=== PATIENT | female | born 1935 | race Caucasian/White ===

== ENCOUNTER 2017-01-07 20:29 | Observation (INO) | payer MEDICARE ==
[2017-01-07 21:26] LABS: Hematocrit 40 % (35-47); Hemoglobin 13.1 g/dl (12.0-16.0); Mean Corpuscular HGB Conc 33 g/dl (31-36); Mean Corpuscular Hemoglobin 32 pg (27-31); Mean Corpuscular Volume 97 fL (80-97); Mean Platelet Volume 9 um3 (7.4-10.4); Red Blood Count 4.14 10^6/ul (4.0-5.4); Red Cell Distribution Width 14 % (10.5-15); White Blood Count 7.7 10^3/ul (3.5-10.8)
[2017-01-07 21:42] LABS: Albumin 3.9 g/dL (3.2-5.2); BUN/Creatinine Ratio 21.3 (8-20); EGFR African American 73.3 (>60); Globulin 2.7 g/dL (2-4); Magnesium 2.2 mg/dL (1.9-2.7); Potassium 3.8 mmol/L (3.5-5.0); Total Bilirubin 0.5 mg/dL (0.2-1.0); Total Protein 6.6 g/dL (6.4-8.9)
--- NOTE | 2017-01-07 21:45 | RAD ---
INDICATION: Syncope COMPARISON: None TECHNIQUE: PA and lateral views of the chest were obtained. FINDINGS: The heart and mediastinum are normal in size and contour. The lungs are grossly clear. There is no evidence of large pleural effusion. There are degenerative changes of thoracic spine including loss of intervertebral disc height. Posterior lumbar trans pedicle screws are partially visualized. There is no radiographic evidence of free air beneath the diaphragm IMPRESSION: No radiographic evidence of acute cardiopulmonary disease.
--- NOTE | 2017-01-07 22:25 | ED ---
Marimar Magana Edward, scribed for Manny Aguilar MD on 01/07/17 at 2052 . Syncope/Near Syncope - HPI Summary HPI Summary: 81 y/o female BIBA s/p sudden onset syncopal episode (1x) that lasted a few minutes. There was no fall; the syncope was witnessed by the family. The pt was eating dinner when it happened. Associated sx: nausea. - History Of Current Complaint Time Seen by Provider: 01/07/17 20:50 Hx Obtained From: Family/Manager Operations And Procurement, EMS Onset/Duration: Sudden Onset, Lasting Minutes Timing: Intermittent Episode Lasting - 1x lasting minutes Context: Witnessed, Loss Of Consciousness Activity At Onset: Other - Eating dinner Associated Head Trauma: No Associated Signs And Symptoms: Other - Nausea Frequency: Episodes x___ - 1 - Allergies/Home Medications Allergies/Adverse Reactions: Allergies Allergy/AdvReac Type Severity Reaction Status Date / Time Clindamycin Allergy Rash Verified 01/07/17 21:27 Penicillins Allergy Unknown Verified 01/07/17 21:30 Reaction Details Sulfa Antibiotics Allergy Unknown Verified 01/07/17 21:30 Reaction Details Home Medications: Home Medications Aspirin TAB* [Aspirin 325 MG TAB*] 325 mg PO DAILY 01/08/17 [History Confirmed 01/08/17] Lisinopril TAB* [Prinivil TAB 10 MG*] 10 mg PO DAILY 01/08/17 [History Confirmed 01/08/17] Lovastatin (NF) [Mevacor (NF)] 10 mg PO DAILY 01/08/17 [History Confirmed ] Metoprolol Tartrate TAB* [Lopressor TAB*] 12.5 mg PO BID 01/08/17 [History Confirmed 01/08/17] Multiple Vitamins W/ Minerals [Multivitamin Adults] 1 tab PO DAILY 01/08/17 [ History Confirmed 01/08/17] PMH/Surg Hx/FS Hx/Imm Hx Previously Healthy: No Cardiovascular History: Reports: Hx Atrial Fibrillation, Hx Hypertension - Surgical History Surgery Procedure, Year, and Place: bilateral knee replacements, disc replacement x2 and eric placement Infectious Disease History: Denies: Traveled Outside the [place] in Last 30 Days - Family History Known Family History: Negative: Other - No CVA - Social History Occupation: Retired Lives: Alone Review of Systems Constitutional: Negative Eyes: Negative ENT: Negative Cardiovascular: Negative Respiratory: Negative Positive: Nausea Genitourinary: Negative Musculoskeletal: Negative Skin: Negative Positive: Syncope Psychological: Normal All Other Systems Reviewed And Are Negative: Yes Physical Exam Triage Information Reviewed: Yes Vital Signs Reviewed: Yes Appearance: Positive: Well-Appearing, No Pain Distress Skin: Positive: Warm Head/Face: Positive: Normal Head/Face Inspection Eyes: Positive: NANDO ENT: Positive: Hearing grossly normal Neck: Positive: Supple Respiratory/Lung Sounds: Positive: Clear to Auscultation, Breath Sounds Present Cardiovascular: Positive: RRR Abdomen Description: Positive: Nontender, Soft Bowel Sounds: Positive: Present Musculoskeletal: Positive: Strength/ROM Intact Neurological: Positive: Alert, Oriented to Person Place, Time Psychiatric: Positive: Affect/Mood Appropriate Diagnostics - Laboratory Result Diagrams: 01/07/17 21:00 01/07/17 21:00 Lab Statement: Any lab studies that have been ordered have been reviewed, and results considered in the medical decision making process. - Radiology CXR Xray Interpretation: No Acute Changes - NAD Radiology Interpretation Completed By: Radiologist - CT BRAIN CT CT Interpretation: No Acute Changes - NO ACUTE INTRACRANIAL FINDINGS CT Interpretation Completed By: Radiologist - EKG 1 Cardiac Rate: NL EKG Rhythm: Sinus Rhythm - @ 79 bpm EKG Interpretation: 21:34 - Nonspecific L lead abnormalities Re-Evaluation - Re-Evaluation First Eval Comment: reults d/w pt Course/Dx Assessment/Plan: 81 y/o female BIBA s/p sudden onset syncopal episode that lasted a few minutes. There was no fall; the syncope was witnessed by the family. The pt was eating dinner when it happened. Associated sx: nausea. CXR SHOWS NAD. EKG @ 21:34 shows NSR @ 79 bpm and nonspecific L lead abnormalities. BRAIN CT SHOWS NO ACUTE INTRACRANIAL FINDINGS. Discusssed with Dr. Seth at 23: 20. [place] [facility] - Diagnoses Provider Diagnoses: Syncope Discharge - Discharge Plan Condition: Fair Disposition: ADMITTED TO [facility] documentation as recorded by the Marimar conde Edward accurately reflects the service I personally performed and the decisions made by me, Manny Aguilar MD.
[2017-01-08 01:26] LABS: Urine Bacteria Absent (Absent); Urine Bilirubin Negative (Negative); Urine Glucose Negative (Negative); Urine Nitrite Negative (Negative)
[2017-01-08] MEDS ORDERED: Heparin VIAL(*) 5000 UNITS/ML VIAL (FIVE THOUSAND) SUBCUT SCH (06:00)
[2017-01-08] MEDS ORDERED: NS 0.9% 1000 ML* 1,000 ML IV SCH (06:00)
[2017-01-08 08:00] VITALS: BP 133/57
--- NOTE | 2017-01-08 08:23 | RAD ---
Indication: Syncope. CT of the brain was performed without IV contrast. Ventricular structures are midline. No midline shift is noted. The extra-axial spaces are unremarkable. There is no evidence of intracranial mass or hemorrhage. No other high or low density lesions are identified. Mastoid air cells and paranasal sinuses are otherwise unremarkable. IMPRESSION: There is no evidence of intracranial mass or hemorrhage noted.
--- NOTE | 2017-01-08 08:57 | DCNOTE ---
Patient seen this morning. Says she is feeling much better, sitting up in bed. [place] she overdid it in the past days, flying from [place], has not been eating or drinking much and has been helping her son clean the house. Received IVF and lactic resolved. On exam, RRR, s1 and s2 present, no m/g/r, lungs CTA B/L, no w/r/r, abd soft, NTND, BS+ No events on tele. Will check orthostatics. Plan to discharge home today with follow-up with her PCP in [place].
[2017-01-08] MEDS ORDERED: Aspirin TAB* 325 MG PO SCH (09:00)
[2017-01-08] MEDS ORDERED: Metoprolol Tartrate TAB* 25 MG PO SCH (09:00)
[2017-01-08] MEDS ORDERED: Multivitamins/Minerals TAB PO SCH (09:00)
[2017-01-08] MEDS ORDERED: LOVASTATIN 10 MG PO SCH (09:00)
[2017-01-08] MEDS ORDERED: Lisinopril TAB* 10 MG PO SCH (09:00)
--- NOTE | 2017-01-08 13:11 | HP ---
HISTORY AND PHYSICAL: DATE OF ADMISSION: 01/08/17 CHIEF COMPLAINT: "I passed out." HISTORY OF PRESENT ILLNESS: The patient is an 81-year-old woman who states she went to her granddaughter's home today for a celebration. She lives in [place], [place], and was visiting. She said all she had was a little glass of wine. She then started to eat and felt faint. The next thing she knows, she was on the floor on a pad. People there said she was out for a few minutes. They did not notice any jerking or any seizure-like activity. She had no tongue biting and no urinary or bowel incontinence. She was completely aware when she awoke. She said last February, a similar thing happened when she passed out on the floor after going to the bathroom. She went to the hospital and was found to be dehydrated. She said prior to this, she had no chest pain, shortness of breath, or palpitations. She does think she has not had enough fluids. PAST MEDICAL HISTORY: She has a past medical history significant for hypertension, hyperlipidemia, and atrial fibrillation. MEDICATIONS: 1. Lisinopril 10 mg daily. 2. Lovastatin 10 mg daily. 3. Metoprolol 12.5 mg twice a day. 4. Aspirin 81 mg daily. 5. She takes a multivitamin and calcium. ALLERGIES/ADVERSE REACTION: CLINDAMYCIN, PENICILLIN and SULFA ANTIBIOTICS. FAMILY HISTORY: Reviewed and noncontributory. SOCIAL HISTORY: No tobacco, occasional alcohol. No recreational drug use. 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 She is a . She has 4 sons and a daughter. Daughter is her healthcare proxy. REVIEW OF SYSTEMS: A 14-point review of systems was completed with the patient. All pertinent positives and negatives are in the history of present illness, otherwise is negative. PHYSICAL EXAMINATION GENERAL: A pleasant woman, lying in bed, in no acute distress. VITAL SIGNS: Temperature 98 degrees, heart rate 78 beats per minute, respiratory rate 16 breaths per minute, pulse ox 98% on room air, blood pressure 151/72. HEENT: Normocephalic, atraumatic. Pupils are equal, round, and reactive to light. Moist mucous membranes. NECK: Supple. No JVD, bruits, palpable thyroid, or lymphadenopathy. CHEST: Clear to auscultation and percussion bilaterally. CARDIOVASCULAR: S1 and S2 appreciated. Regular rate and rhythm. ABDOMEN: Positive bowel sounds in all 4 quadrants. Soft, nontender, and nondistended. EXTREMITIES: No cyanosis, clubbing or edema, +2 peripheral pulses bilaterally. NEURO: Alert and oriented x3. Moves all extremities. SKIN: No rashes or abnormalities. LABORATORY DATA/DIAGNOSTIC DATA: White count 7.7, hemoglobin 13.1, hematocrit 40, platelets are 207. Sodium 136, potassium 3.8, chloride 102, CO2 25, BUN 20 , creatinine 0.94, glucose is 110. Lactic acid is 3. Urine has +2 leukocyte esterase, +2 rbc's, trace white cells. D-dimer is less than 200. Brain CT was reviewed. Showed no acute abnormalities by the preliminary findings. Chest x-ray showed no radiographic evidence for acute cardiopulmonary disease. EKG showed normal sinus rhythm at 67 beats per minute, normal axis, no evidence of ST-T wave changes. ASSESSMENT AND PLAN: 1. Syncope may be secondary to dehydration. She could have had an arrhythmia, which had gone through rapid atrial fibrillation. She is back in normal sinus. We will admit her to telemetry unit, do neurological checks, check serial troponins. We would normally get an echo on this patient, but we do not do them until tomorrow and she probably could just have one as an outpatient. She may also have urinary tract infection. I will give her a dose of Rocephin. 2. Hypertension. Borderline control. Continue current regimen and adjust medications accordingly. 3. Atrial fibrillation. Continue metoprolol and aspirin. 4. Hyperlipidemia. Stable. Continue statin. 5. DVT prophylaxis. Heparin subcu. 6. The patient is a full code. TIME SPENT: Over 75 minutes was spent on this H and P; more than 40 minutes of which was spent in direct [id number] contact with the patient in evaluation, physical exam, counseling, and coordination of care. [id number]/[facility] #: [id number] [facility]
--- NOTE | 2017-01-09 03:37 | DS ---
DISCHARGE SUMMARY: DATE OF ADMISSION: 01/08/17 DATE OF DISCHARGE: 01/08/17 PRIMARY CARE PHYSICIAN: In [place]. PRINCIPAL DISCHARGE DIAGNOSIS: Syncope. SECONDARY DIAGNOSES: 1. Hypertension. 2. Hyperlipidemia. 3. Atrial fibrillation. DISCHARGE MEDICATION REGIMEN: 1. Metoprolol 12.5 mg by mouth 2 times daily. 2. Multivitamin 1 tablet by mouth daily. 3. Aspirin 81 mg by mouth daily. 4. Lovastatin 10 mg by mouth at bedtime. 5. Calcium plus vitamin D 1 tablet by mouth daily. 6. Vitamin B12 1000 mcg by mouth daily. 7. Lisinopril 10 mg by mouth daily. STUDIES DONE DURING HOSPITALIZATION: Chest x-ray, impression: No radiographic evidence of acute ca rdiopulmonary disease. CT of the brain without contrast, impression: There is no evidence of intracranial mass or hemorrha ge noted. HISTORY OF PRESENT ILLNESS AND HOSPITAL SUMMARY: Please see the full history and physical by Dr. Db Seth for full details. Briefly, Ms. Guillory is an 81-year- old female with a past medical hi story as above, who presented to the hospital after a syncopal episode. 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 It seemed that this culminated at a dinn er yesterday and just prior to eating while sitting down, she had a syncopal episode. She came to s hortly afterwards and was not confused. She had no shaking, bladder or bowel incontinence, or bitin g of the tongue. Here in the hospital, labs were relatively unremarkable except for a lactic acid o f 3.0. Troponins were trended and remained negative. She was placed on telemetry with no acute shayan nts. She was given some IV fluids with resolution of her lactic acidosis. She had no further episod es here in the hospital, so likely this was probably due to dehydration and overexerting herself. S he states she usually is able to tell when she has an episode of atrial fibrillation, it has been ye ars since her last one. She will be discharged home without any medication changes and follow up wit h her PCP back in [place]. TIME SPENT: Total time spent on this discharge 40 minutes. This is a summary of the hospitalization. Please see the full medical record for further details. [id number]/[facility] #: [id number]
== END 2017-01-08 11:02 | disposition home or self-care (01) ==
LOC: ED 20:29 → MERGE 01-08 01:13 → MEDTELE 01-08 01:13
PROVIDERS: ADMIT Internal Medicine; ATTEND Hospitalist
DX: R55 Syncope and collapse (principal); I10 Essential (primary) hypertension; E78.5 Hyperlipidemia, unspecified; I48.91 Unspecified atrial fibrillation; Z79.82 Long term (current) use of aspirin; Z79.899 Other long term (current) drug therapy; Z88.0 Allergy status to penicillin; Z88.1 Allergy status to other antibiotic agents
CPT/HCPCS: 36415; 70450; 71020; 80053; 81003; 81015; 83605; 83735; 84484; 85025; 85379; 87077; 87086; 87186; 93005; 96360; 96361; 96372; 99284; A9270-GY; G0378; J1644

== ENCOUNTER 2017-01-11 12:08 | Inpatient (IN) | payer MEDICARE ==
[2017-01-11 12:41] LABS: Hematocrit 41 % (35-47); Hemoglobin 13.4 g/dl (12.0-16.0); Mean Corpuscular HGB Conc 33 g/dl (31-36); Mean Corpuscular Hemoglobin 31 pg (27-31); Mean Corpuscular Volume 95 fL (80-97); Mean Platelet Volume 9 um3 (7.4-10.4); Red Blood Count 4.29 10^6/ul (4.0-5.4); Red Cell Distribution Width 14 % (10.5-15); White Blood Count 6.9 10^3/ul (3.5-10.8)
[2017-01-11 13:00] LABS: ALT 17 U/L (7-52); Albumin 4.1 g/dL (3.2-5.2); Alkaline Phosphatase 42 U/L (34-104); Blood Urea Nitrogen 18 mg/dL (6-24); CO2 Carbon Dioxide 26 mmol/L (22-32); Chloride 102 mmol/L (101-111); EGFR African American 85.8 (>60); EGFR Non-African American 66.7 (>60); Globulin 2.8 g/dL (2-4); Glucose 112 mg/dL (70-100); Magnesium 2.2 mg/dL (1.9-2.7); Sodium 135 mmol/L (133-145); Total Protein 6.9 g/dL (6.4-8.9)
[2017-01-11 13:08] LABS: AST 33 U/L (13-39); Anion Gap 7 mmol/L (2-11)
--- NOTE | 2017-01-11 13:11 | RAD ---
HISTORY: Syncope COMPARISONS: June 17, 2009 VIEWS: 4: Frontal dual-energy and lateral views of the chest. FINDINGS: CARDIOMEDIASTINAL SILHOUETTE: The cardiomediastinal silhouette is normal. OBI: The obi are normal. PLEURA: The costophrenic angles are sharp. No pleural abnormalities are noted. LUNG PARENCHYMA: There is hyperinflation with flattening of the diaphragm and expansion of the AP diameter of the chest. ABDOMEN: The upper abdomen is clear. There is no subphrenic gas. BONES AND SOFT TISSUES: The patient is status post spinal fusion OTHER: None. IMPRESSION: HYPERINFLATION, CONSISTENT WITH COPD. NO ACTIVE CARDIOPULMONARY DISEASE.
[2017-01-11 13:13] LABS: Alcohol < 10 mg/dL (<10)
[2017-01-11 13:24] LABS: TSH (Thyroid Stimulating Horm) 4.32 mcIU/mL (0.34-5.60)
[2017-01-11 14:34] LABS: Urine Bacteria Absent (Absent); Urine Bilirubin Negative (Negative); Urine Glucose Negative (Negative); Urine Nitrite Negative (Negative)
[2017-01-11] MEDS ORDERED: Acetaminophen TAB* 325 MG PO PRN (14:54)
[2017-01-11] MEDS ORDERED: Ondansetron INJ* 2 MG/ML VIAL IV PRN (14:54)
[2017-01-11 14:55] LABS: Benzodiazepine Urine Screen None Detected (None Detect)
[2017-01-11] MEDS ORDERED: Iohexol 350* (CONTRAST) 500 ML MDV IV ONE (16:52)
--- NOTE | 2017-01-11 17:51 | HP ---
ADDENDUM NOW INCLUDED ON THIS REPORT CC: Dr. Vania Scott from [place], [place] * HISTORY AND PHYSICAL: DATE OF ADMISSION: 01/11/17 PRIMARY CARE PROVIDER: Dr. Vania Scott from [place], [place]. ATTENDING PHYSICIAN WHILE IN THE HOSPITAL: Poly Denney DO * (report dictated by Regan Easton NP). CHIEF COMPLAINT: Syncope. HISTORY OF PRESENT ILLNESS: Ms. Guillory is an 81-year-old female patient who has a history of hypertension, hyperlipidemia, atrial fibrillation, who is visiting from [place], [place], and unfortunately she has had 2 episodes 2 days apart where she has been sitting both times, she gets flushed and then faints. She states that typically she is out for about 2 minutes and then she comes to. She says when she comes to, she recognizes her surrounding, she knows where she is. She was evaluated on 01/08/17, was admitted and it was felt that she was fainting possibly or having syncope due to dehydration and orthostasis. She responded to fluids, was feeling better and discharged. Unfortunately today , she was sitting at a meeting, she got flushed. She did not have chest pain. She did not feel palpitations. She said she passed out at the desk where she was sitting and no cardiac symptoms prior to or after the event and no shortness of breath. She did travel via airline to [place] recently. Denies any change in medications recently. Denies having any fevers, cough, chills. No vomiting. No diarrhea. She said she has been taking her meds as prescribed. She does state that sometimes her heart rate is noted to be in the 50s. Sometimes it is as low as in the 40s. She is on a beta-david. She did have a similar episode in February of this year, was evaluated in [place], and had a 30-day event monitor and no events were found, according to the patient's recall. She came in today, though, and because of the syncope, we were asked to evaluate for admission. PAST MEDICAL HISTORY: Significant for: 1. Hypertension. 2. Hyperlipidemia. 3. AFib. PAST SURGICAL HISTORY: She has had: 1. Tonsillectomy. 2. Appendectomy. 3. Bilateral total knee replacement. 4. Back surgery x2. HOME MEDICATIONS: Home meds are according to the list that was obtained and include: 1. Multivitamin 1 tablet daily. 2. Lopressor 12.5 mg p.o. b.i.d. 3. Mevacor 10 mg at bedtime. 4. Lisinopril 10 mg daily. 5. B12 1000 mcg daily. 6. Calcium with vitamin D 1 tablet p.o. daily. 7. Aspirin 81 mg daily. ALLERGIES TO MEDICATIONS: CLINDAMYCIN, PENICILLIN and SULFA DRUGS. FAMILY HISTORY: Mother at the age of 96 from old age. Father had a history of dementia. SOCIAL HISTORY: She does not smoke. She rarely drinks alcohol. Surrogate decision maker is her daughter. REVIEW OF SYSTEMS: There is no documented fever. She denied having any significant weight change. There was no double vision. She denies having any ear discharge. There was no rhinorrhea. No sore throat. No thyroid enlargement. She denies having any chest pain. No orthopnea, nocturnal dyspnea. There was no abdominal pain, no nausea, no vomiting. No dysuria, no frequency. No seizure. There was a loss of consciousness. No pruritus and no skin ulcerations. Review of 14 systems completed, all others negative. PHYSICAL EXAMINATION GENERAL: At this time, Ms. Guillory is an 81-year-old female patient. She appears to be well nourished, well developed. She does not appear to be in any acute distress. VITAL SIGNS: Blood pressure 140/65 with a pulse of 86, respirations 16, O2 sat 97%, temperature 98.4. HEENT: Head is atraumatic, normocephalic. Eyes: EOMs are intact. Sclerae anicteric, not pale. NECK: Supple. Throat: Oral mucosa appears to be moist. No oropharyngeal erythema. LUNGS: Clear to auscultation. No wheezes, rales or rhonchi. HEART: Sounds S1 and S2. Regular rate and rhythm. No murmurs, rubs or gallops. ABDOMEN: Soft, flat, nontender. Bowel sounds present. EXTREMITIES: Pulses were 2+ throughout. She is able to move all 4 extremities with 5/5 strength. NEUROLOGIC: The patient is awake, alert, oriented x3. Tongue midline. Criminal Justice Social Worker were equal. No gross focal deficits. SKIN: Grossly intact. LABORATORY DATA/IMAGING: Revealed a WBC of 6.9, RBC of 4.29, hemoglobin of 13.4, hematocrit of 41, platelet count 209. Sodium is 135, potassium 4, chloride of 102, bicarb 26, BUN 18, creatinine 0.82, glucose 112, lactate 1.1, calcium 9.0. Total mag 2.2. Total bili 0.5, AST 33, ALT 17, alk phos 42, ammonia 26, troponin 0. TSH of 4.32. Serum alcohol is less than 10. She did have a chest x-ray obtained today which revealed hyperinflation consistent with COPD, no active cardiopulmonary disease. She did have an EKG obtained today which revealed sinus bradycardia rate of 59, no ST elevation or T-wave inversions. Reviewed with her previous EKG and is similar. Old medical records are reviewed. ASSESSMENT AND PLAN: Ms. Guillory is an 81-year-old female patient coming into the ER today with complaints of a syncopal episode. The patient has had instances of this in the past. She did have an episode in February. She has another episode recently this week and now presenting again having syncope while sitting in the chair. She will be admitted under observation status for: 1. Syncope. At this point, you know she may benefit from a loop recorder. Unfortunately though, she does reside in [place]. I did touch base with her cyber defense incident responder who felt that placing a loop recorder without being able to ensure followup was not the best approach. He felt that it would be better to have the patient follow up with her primary cyber defense incident responder in [place] for a possible loop recorder. I am trying to get the contact information to see if we can touch base with him. If we do not do it today, we can do it tomorrow. My plan for now is: 1. To do an echo, D-dimer, troponins, telemetry, and follow closely and check orthostatics. 2. Hypertension. I am going to stop the beta-david as her heart rate has dipped down into the 40s and 50s. We will continue lisinopril, and if need be, we can add on a calcium channel david such as Norvasc if she needs better blood pressure control. 3. Hyperlipidemia. Continue Mevacor. 4. Atrial fibrillation. She appears to be in sinus rhythm, now on monitor. 5. DVT prophylaxis. Place her on heparin subcu. 6. Code status. Full code. 7. Fluids, electrolytes, nutrition. She can have a heart healthy diet. TIME SPENT: Time spent on the admission was 60 minutes, greater than half the time was spent face to face with the patient obtaining my history and physical, the other half of the time was spent on going over the plan of care with the patient and implementing the place of care. I did discuss the plan of care with my attending, Dr. Denney; she is in agreement. REGAN EASTON NP ADDENDUM: It did touch base with the patient's cyber defense incident responder Dr. Jose Alfredo Rutledge at [place], phone number [phone], fax number [phone]. Unfortunately, Dr. Rutledge will not be in for the next couple of weeks, but I did relay a message to the nurse there that the patient most likely will benefit from a Linq monitor , which they do offer there. Our cyber defense incident responder here felt that it would be more beneficial to have the patient have this device placed in [place]. So I did touch base with her, relayed that message, and I am waiting to hear back from the patient's cyber defense incident responder's office and from the nurse that deals with the monitoring. Again, if they do not call back today, we can touch base with them tomorrow. REGAN EASTON NP [id number]/[facility] #: [id number]/[facility] #: [id number] [facility]
--- NOTE | 2017-01-11 17:55 | ED ---
Marimar Magana Edward, scribed for Alex Weber MD on 01/11/17 at 1224 . Syncope/Near Syncope - HPI Summary HPI Summary: 81 y/o female presents to ED s/p sudden onset syncopal episode earlier today. Witnessed LOC for around 2 minutes. The patient was sitting when it happened, and felt warm. She looked pale, per witness. Denies CARLOS, blurred vision, CP, SOB , palpitations, N/V. PMHx syncopal episodes. Five days ago during dinner the pt had a syncopal episode and was admitted to the ED. - History Of Current Complaint Chief Complaint: EDSyncope Time Seen by Provider: 01/11/17 12:18 Hx Obtained From: Patient Onset/Duration: Sudden Onset, Lasting Weeks - Last episode 5 days ago. Also once in Feb. Timing: Frequency Of Episodes - 2 Context: Witnessed, Loss Of Consciousness Activity At Onset: At Rest - Sitting Associated Signs And Symptoms: Negative Frequency: Episodes x___ - Allergies/Home Medications Allergies/Adverse Reactions: Allergies Allergy/AdvReac Type Severity Reaction Status Date / Time Clindamycin Allergy Rash Verified 01/07/17 21:27 Penicillins Allergy Unknown Verified 01/07/17 21:30 Reaction Details Sulfa Antibiotics Allergy Unknown Verified 01/07/17 21:30 Reaction Details SCALLOPS Allergy Unknown Uncoded 01/08/17 10:54 Reaction Details SQUID AdvReac Unknown Uncoded 01/08/17 10:54 Reaction Details Home Medications: Home Medications Aspirin EC Low Dose* [Ecotrin EC Low Dose 81 MG*] 81 mg PO DAILY 01/11/17 [ History Confirmed 01/11/17] PMH/Surg Hx/FS Hx/Imm Hx Previously Healthy: No Cardiovascular History: Reports: Hx Atrial Fibrillation, Hx Hypertension Musculoskeletal History: Reports: Hx Back Problems Sensory History: Denies: Hx Contacts or Glasses, Hx Hearing Aid Opthamlomology History: Denies: Hx Contacts or Glasses - Surgical History Surgery Procedure, Year, and Place: bilateral knee replacements, disc replacement x2 and eric placement Infectious Disease History: No Infectious Disease History: Denies: Traveled Outside the [place] in Last 30 Days - Family History Known Family History: Negative: Other - No CVA - Social History Alcohol Use: Occasionally Alcohol Amount: glass of wine Substance Use Type: Reports: None Smoking Status (MU): Never Smoked Tobacco Review of Systems Constitutional: Negative Eyes: Negative ENT: Negative Cardiovascular: Negative Respiratory: Negative Gastrointestinal: Negative Genitourinary: Negative Musculoskeletal: Negative Skin: Negative Positive: Syncope Psychological: Normal All Other Systems Reviewed And Are Negative: Yes Physical Exam - Summary Physical Exam Summary: VITAL SIGNS: Reviewed. GENERAL: ~Patient is a well-developed and nourished female who is lying comfortable in the stretcher. ~Patient is not in any acute respiratory distress. HEAD AND FACE: No signs of trauma. ~No ecchymosis, hematomas or skull depressions. No sinus tenderness. EYES: PERRLA, EOMI x 2, No injected conjunctiva, no nystagmus. EARS: Hearing grossly intact. Ear canals and tympanic membranes are within normal limits. MOUTH: Oropharynx within normal limits. NECK: Supple, trachea is midline, no adenopathy, no JVD, no carotid bruit, no c- spine tenderness, neck with full ROM. CHEST: Symmetric, no tenderness at palpation LUNGS: Clear to auscultation bilaterally. No wheezing or crackles. CVS: Regular rate and rhythm, S1 and S2 present, no murmurs or gallops appreciated. ABDOMEN: Soft, non-tender. No signs of distention. No rebound no guarding, and no masses palpated. Bowel sounds are normal. EXTREMITIES: FROM in all major joints, no edema, no cyanosis or clubbing. NEURO: Alert and oriented x 3. No acute neurological deficits. Speech is normal and follows commands. SKIN: Dry and warm Triage Information Reviewed: Yes Vital Signs On Initial Exam: Initial Vitals Temp Pulse Resp BP Pulse Ox 98.4 F 77 20 167/103 94 01/11/17 12:09 01/11/17 12:09 01/11/17 12:09 01/11/17 12:09 01/11/17 12:09 Vital Signs Reviewed: Yes - [place] Coma Scale Coma Scale Total: 15 Diagnostics - Vital Signs Vital Signs Temp Pulse Resp BP Pulse Ox 01/11/17 12:17 70 01/11/17 12:15 27 01/11/17 12:13 167/103 01/11/17 12:09 98.4 F 77 20 167/103 94 - Laboratory Result Diagrams: 01/11/17 12:30 01/11/17 12:30 Lab Statement: Any lab studies that have been ordered have been reviewed, and results considered in the medical decision making process. - Radiology CXR Xray Interpretation: No Acute Changes - HYPERINFLATION, CONSISTENT WITH COPD. NO ACTIVE CARDIOPULMONARY DISEASE. Radiology Interpretation Completed By: Radiologist - EKG 1 ST Segment: Normal EKG Interpretation: 12:15 - SINUS BRADYCARDIA @ 59 BPM EKG Comparison: No Significant Change - 01/08/17 Course/Dx Assessment/Plan: 81 y/o female presents to ED s/p sudden onset syncopal episode earlier today. The patient was sitting when it happened, and felt warm prior to the episode. She looked pale, per witness. Denies CARLOS, blurred vision, CP, SOB, palpitations, N/V. PMHx syncopal episode. Five days ago during dinner the pt had a syncopal episode and was admitted to the ED. CXR SHOWS HYPERINFLATION, CONSISTENT WITH COPD. NO ACTIVE CARDIOPULMONARY DISEASE. EKG 12:15 - SINUS BRADYCARDIA @ 59 BPM and no significant change from 01/08/17. Test results are without significant abnormalities except glucose 112. UA (-) UTI. Urine toxicology negative. I did not perform HEAD CT since he had a negative head CT 2 days ago. CXR and EKG. Because of continual syncopal episodes, I discussed the case with Dr. Denney who accepted the pt for admission. The pt is hemodynamically stable and A&Ox3. - Diagnoses Provider Diagnoses: Syncope Discharge - Discharge Plan Condition: Stable Disposition: ADMITTED TO [facility] The documentation as recorded by the Marimar conde Edward accurately reflects the service I personally performed and the decisions made by me, Alex Weber MD.
--- NOTE | 2017-01-11 18:08 | HP ---
HISTORY AND PHYSICAL:* ADDENDUM: It did touch base with the patient's systems program manager Dr. Jose Alfredo Rutledge at [place], phone number [phone], fax number [phone]. Unfortunately, Dr. Rutledge will not be in for the next couple of weeks, but I did relay a message to the nurse there that the patient most likely will benefit from a Linq monitor, which they do offer there. Our systems program manager here felt that it would be more beneficial to have the patient have this device placed in [place]. So I did touch base with her, relayed that message and I am waiting to hear back from the patient's systems program manager's office and from the nurse that deals with the monitoring. Again, if they do not call back today, we can touch base with them tomorrow. THONY WARE NP [id number]/[id number]/[facility] #: [id number] SARA
[2017-01-11] MEDS ORDERED: predniSONE TAB* 50 MG PO ONE (19:00)
[2017-01-11] MEDS ORDERED: Lovastatin (NF) 10 MG TAB PO SCH (21:00)
[2017-01-11] MEDS: Heparin VIAL(*) 5000 UNITS/ML VIAL (FIVE THOUSAND) SUBCUT SCH (21:53)
[2017-01-12] MEDS ORDERED: predniSONE TAB* 50 MG PO ONE ×2 (01:00→07:00)
[2017-01-12 05:18] LABS: Hematocrit 42 % (35-47); Hemoglobin 13.9 g/dl (12.0-16.0); Mean Corpuscular HGB Conc 34 g/dl (31-36); Mean Corpuscular Hemoglobin 31 pg (27-31); Mean Corpuscular Volume 94 fL (80-97); Mean Platelet Volume 9 um3 (7.4-10.4); Red Blood Count 4.43 10^6/ul (4.0-5.4); Red Cell Distribution Width 14 % (10.5-15); White Blood Count 5.2 10^3/ul (3.5-10.8)
[2017-01-12 05:33] LABS: BUN/Creatinine Ratio 27.1 (8-20); Calcium 9.4 mg/dL (8.6-10.3); EGFR Non-African American 80.1 (>60); Potassium 3.7 mmol/L (3.5-5.0)
[2017-01-12] MEDS: Heparin VIAL(*) 5000 UNITS/ML VIAL (FIVE THOUSAND) SUBCUT SCH ×3 (06:26→21:02)
[2017-01-12] MEDS ORDERED: diPHENhydraMINE PO* 50 MG PO ONE (07:00)
[2017-01-12] MEDS: Aspirin EC Low Dose* 81 MG TAB.EC PO SCH (08:32)
[2017-01-12] MEDS: Lisinopril TAB* 10 MG PO SCH (08:32)
--- NOTE | 2017-01-12 08:53 | RAD ---
HISTORY: Shortness of breath, elevated dimer COMPARISONS: None TECHNIQUE: Multiple contiguous axial CT scans of the chest were obtained after the administration of nonionic intravenous contrast, timed to the pulmonary arterial phase of contrast enhancement.. Coronal and sagittal multiplanar reformations are also submitted for review. FINDINGS: NECK AND THYROID: The lower neck and thyroid are unremarkable. CHEST WALL: There is no lower cervical, axillary, or supraclavicular lymphadenopathy by size criteria. HEART AND PERICARDIUM: The heart is unremarkable. AORTA AND PULMONARY VASCULATURE: There is no pulmonary arterial filling defect to suggest pulmonary embolism. There is no linear filling defect within the aorta to suggest aortic dissection. MEDIASTINUM: There is no mediastinal lymphadenopathy by size criteria. OBI: There is no hilar lymphadenopathy by size criteria. AIRWAY AND ESOPHAGUS: The airway is unremarkable, without endobronchial filling defect. The esophagus is grossly normal. LUNG PARENCHYMA: The lungs are clear. PLEURA: No pleural abnormalities are noted. UPPER ABDOMEN: The upper abdomen is unremarkable. BONES AND SOFT TISSUES: Degenerative changes are noted OTHER: None. IMPRESSION: NO PULMONARY ARTERIAL FILLING DEFECT TO SUGGEST PULMONARY EMBOLISM
[2017-01-12] MEDS ORDERED: Metoprolol Tartrate TAB* 25 MG PO SCH (09:00)
[2017-01-12] MEDS: Metoprolol Tartrate TAB* 25 MG PO SCH ×2 (12:42→21:00)
--- NOTE | 2017-01-12 13:09 | ECHO ---
Patient: PEYMAN LONGORIA [facility] Rec#: [id number] : 1935 Date: 01/12/2017 Age: 81y Height: 165.1 cm / 65.0 in Weight: 55.34 kg / 122.0 lbs Sex: F BSA: 1.6 Room#: 439 Admit Date#: 01/11/2017 Type: Inpatient Referring: Regan Easton NP Reading: Hali Issa MD Sketcher: Kathleen Eaton [facility] Transthoracic Echocardiogram Indication: Syncope BP: 140/64 HR: 90 Rhythm: NSR Findings History: HTN,HLD,a-fib,recent syncopal episodes. Technical Comments: The study quality is good. Left Ventricle: The left ventricular chamber size is normal. The left ventricle appears hyperdynamic. The estimated ejection fraction is greater than 65%. No evidence of LVOT obstruction. Abnormal left ventricular diastolic function is observed. Left Atrium: The left atrium is slightly dilated. Right Ventricle: The right ventricular cavity size is normal. The right ventricular global systolic function is normal.to hyperdynamic. Right Atrium: The right atrial cavity size is normal. Aortic Valve: The aortic valve is trileaflet. There is no evidence of aortic regurgitation. There is no evidence of aortic stenosis. Mitral Valve: The mitral valve leaflets appear normal. There is a trace of mitral regurgitation. There is no evidence of mitral stenosis. Tricuspid Valve: The tricuspid valve leaflets are normal. There is trace to mild tricuspid regurgitation. No pulmonary hypertension is noted. There is no tricuspid stenosis. Pulmonic Valve: The pulmonic valve appears normal. There is no evidence of pulmonic regurgitation. There is no pulmonic stenosis. Pericardium: The pericardium appears normal. Aorta: There is no dilatation of the ascending aorta. There is no dilatation of the aortic arch. There is no dilation of the aortic root. Pulmonary Artery: The main pulmonary artery appears normal. Venous: The venous system is not well visualized. Conclusions The left ventricle appears hyperdynamic, small cavity diameter at end systole. The estimated ejection fraction is greater than 65%. No evidence of LVOT obstruction. Abnormal left ventricular diastolic function is observed. The right ventricular global systolic function is normal.to hyperdynamic. There is a trace of mitral regurgitation. There is trace to mild tricuspid regurgitation. No pulmonary hypertension is noted. No prior studies avaiable to compare. Measurements Name Value Normal Range RVIDd (AP) 2D 2.4 cm (0.9 - 2.6) RVDdMajor (2D) 3 cm (2.2 - 4.4) RAd ISD 4CH 4.3 cm (3.4 - 4.9) RA (A4C)W 3 cm (2.9 - 4.6) IVSd (2D) 0.7 cm (0.6 - 1) LVPWd (2D) 0.8 cm (0.6 - 1) LVIDd (2D) 4.6 cm (3.6 - 5.4) LVIDs (2D) 2.7 cm - LV FS (2D) 41 % (25 - 45) Aortic Annulus 2 cm (1.4 - 2.6) Ao root diameter (2D) 3.2 cm (2.1 - 3.5) Ascending Ao 2.8 cm (2.1 - 3.4) Aortic arch 2.4 cm (1.8 - 3.4) Descending Ao 0.7 cm - LA dimension (AP) 2D 3.9 cm (2.3 - 3.8) LAd ISD 4CH 3.6 cm (2.9 - 5.3) LA ISD 4CH W 4 cm (2.5 - 4.5) Name Value Normal Range LA ESV SP 4CH (A/L) 34 ml - LA ESV SP 2CH (A/L) 35 ml - LA ESV BP (A/L) 37 ml - LA ESV BP (A/L) index 23.21 ml/m2 - LA ESV SP 4CH (MOD) 33 ml - LA ESV SP 2CH (MOD) 32 ml - Name Value Normal Range MV E-wave Vmax 0.6 m/sec - MV deceleration time 139 msec - MV A-wave Vmax 0.8 m/sec - MV E:A ratio 0.69 ratio - LV septal e' Vmax 0.06 m/sec - LV lateral e' Vmax 0.07 m/sec - LV E:e' septal ratio 10 ratio - LV E:e' lateral ratio 11.67 ratio - Name Value Normal Range AV Vmax 1.1 m/sec - AV VTI 21 cm - AV peak gradient 4.39 mmHg - AV mean gradient 2.45 mmHg - LVOT Vmax 0.8 m/sec - LVOT VTI 16 cm - LVOT peak gradient 2.67 mmHg - LVOT mean gradient 1.47 mmHg - Name Value Normal Range TR Vmax 2.5 m/sec - TR peak gradient 24 mmHg - RAP 8 mmHg - RVSP 32 mmHg - Name Value Normal Range PV Vmax 0.4 m/sec - PV peak gradient 0.55 mmHg -
--- NOTE | 2017-01-12 16:03 | PN ---
Subjective Date of Service: 01/12/17 Interval History: Pt feels well, had another syncope yesterday prior to coming in to [facility]. no prodromal symptoms apart for a sensation of feeling "hot". Had an episode of a. fib/SVT this AM-several min, HR in 120's, asymptomatic Objective Active Medications: Acetaminophen (Tylenol Tab*) 650 mg PO Q4H PRN PRN Reason: FEVER/PAIN Aspirin (Aspirin Ec Low Dose*) 81 mg PO DAILY [facility] Last Admin: 01/12/17 08:32 Dose: 81 mg Heparin Sodium (Porcine) (Heparin Vial(*)) 5,000 units SUBCUT Q8HR [facility] Last Admin: 01/12/17 14:32 Dose: 5,000 units Sodium Chloride (Ns 0.9% 1000 Ml*) 1,000 mls @ 100 mls/hr IV PER RATE [facility] Lisinopril (Prinivil Tab*) 10 mg PO DAILY [facility] Last Admin: 01/12/17 08:32 Dose: 10 mg Lovastatin (Mevacor (Nf)) 10 mg PO BEDTIME [facility] PRN Reason: Protocol Metoprolol Tartrate (Lopressor Tab*) 12.5 mg PO BID [facility] Last Admin: 01/12/17 12:42 Dose: 12.5 mg Ondansetron HCl (Zofran Inj*) 4 mg IV Q6H PRN PRN Reason: NAUSEA Vital Signs 01/11/17 01/11/17 01/12/17 20:08 22:14 00:11 Temperature 98.1 F 98.2 F Pulse Rate 76 87 75 Respiratory 16 16 Rate Blood Pressure 141/67 135/73 137/67 (mmHg) O2 Sat by Pulse 95 91 Oximetry 01/12/17 01/12/17 01/12/17 01:30 04:29 06:25 Temperature 98.1 F Pulse Rate 92 Respiratory 16 16 Rate Blood Pressure 150/86 (mmHg) O2 Sat by Pulse 95 97 Oximetry 01/12/17 01/12/17 01/12/17 07:55 08:00 08:25 Temperature 98.3 F Pulse Rate 92 Respiratory 16 16 16 Rate Blood Pressure 167/75 (mmHg) O2 Sat by Pulse 96 Oximetry 01/12/17 11:38 Temperature 98.6 F Pulse Rate 104 Respiratory 16 Rate Blood Pressure 156/69 (mmHg) O2 Sat by Pulse 93 Oximetry Oxygen Devices in Use Now: None Appearance: 81 yo f in nAd, aAOx3 Eyes: No Scleral Icterus, PERRLA Ears/Nose/Mouth/Throat: NL Teeth, Lips, Gums, Mucous Membranes Moist Neck: NL Appearance and Movements; NL JVP, Trachea Midline Respiratory: Symmetrical Chest Expansion and Respiratory Effort, Clear to Auscultation Cardiovascular: NL Sounds; No Murmurs; No JVD, RRR Abdominal: NL Sounds; No Tenderness; No Distention Lymphatic: No Cervical Adenopathy Extremities: No Edema, No Clubbing, Cyanosis Skin: No Rash or Ulcers, No Nodules or Sclerosis Neurological: Alert and Oriented x 3, NL Muscle Strength and Tone Result Diagrams: 01/12/17 05:11 01/12/17 05:11 Assess/Plan/Problems-Billing Assessment: 81 yo f with h/o cardiac arrest post op in , HTN, post po a. fib in the past, who presented with a second episode of syncope and LOC this week(previously see on 01/08/17). - Patient Problems (1) Syncope Comment: first episode in 01/08/17 -OBV at [facility] second episode on 01/12/17 Echo shows hyperdynamic LV with EF 65%. CTA neg for PE Spoke with pt about a loop recorder placement. Pt agreed. consulted Dr. Issa cont IVF for now. (2) Atrial fibrillation Comment: noted post op several years ago. Never anticoagulated. lopressor was stopped at admission due to mild bradycardia this AM pt had a several min SVT/A. fib episode with HR in 120's-asymptomatic and continued to be tachycardic (in sinus tachy). Lopressor restarted in PM today. Asked Dr. Issa to comment about the need of aniticoagulation (3) HTN (hypertension) Comment: cont lisinopril and lopressor (4) DVT prophylaxis Comment: heparin sc Status and Disposition: OBV changed to inpatient due to need of further IVF and monitoring
[2017-01-12] MEDS: NS 0.9% 1000 ML* 1,000 ML IV SCH (17:06)
[2017-01-12] MEDS: CMCS: Lovastatin (NF) 10 MG TAB PO SCH (21:01)
[2017-01-13] MEDS: NS 0.9% 1000 ML* 1,000 ML IV SCH ×2 (01:24→18:27)
--- NOTE | 2017-01-13 01:28 | CONS ---
CC: Dr. Jose Alfredo Rutledge, [facility], [facility] [place], [address], [place], [place] [address]; Hospitalist Service * CONSULTATION REPORT: DATE OF CONSULT: 01/12/17 REASON FOR CONSULT: Syncope. CHIEF COMPLAINT: Syncope. HISTORY OF PRESENT ILLNESS: Mrs. Guillory is an 81-year-old woman who resides in [place], [place] and is visiting her family here in [place]. The patient flew here and admits that she probably did not eat and drink enough the day of the flight. The day after the flight she states she was very dizzy and at dinner at one of her relatives', she was seated and felt very dizzy all of a sudden, took a bite and then had a syncopal episode. Her [id number]-wy-ozp was with her and witnessed that event and said she completely lost consciousness and appeared to stop breathing, her eyes rolled back, required some degree of resuscitation and was seen in the ED and observed for 24 hours. In reviewing the ED notes of this presentation on 01/07/17, she had nausea on arrival to the ED. Her systolic blood pressure is 103/51 with pulse of 75 and over time koki to the 140s to 150s. She was discharged to home and then yesterday the patient was seated, suddenly felt very warm and hot and lost consciousness again. This was also witnessed and she apparently looked very pale. Vital signs on admission to the emergency department on 01/11/17 showed blood pressure of 167/103, pulse was 77. At the time I saw her, she had received high dose steroids to get a CT scan. She also had her beta-david held and said she was feeling well. The patient relate she has had syncopal episodes and has arrested in the past. She describes with surgical procedures, knee replacements and back surgery that she arrested and was felt to be due to complications of anesthesia. Her daughter-in- law who is a nurse had checked with the patient's son, who is a physician and it sounds like this may have a respiratory arrest related to her anesthesia. The patient did have one other syncopal episode in the distant past as well. In reading her plate cleaner's notes, he documents concern for slow sinus node recovery time after A-fib events with a previous event. PAST MEDICAL HISTORY: The patient has a past medical history of paroxysmal atrial fibrillation, episodes of loss of consciousness as above, degenerative arthritis, hypertension, dyslipidemia, varicose veins. PAST SURGICAL HISTORY: Includes appendectomy, bunionectomy, hysterectomy, bilateral knee replacements, laminectomy, rotator cuff repair, tonsillectomy, varicose vein procedure/surgery. MEDICATIONS: Inpatient medications include: 1. Tylenol p.r.n. 2. Aspirin 81 mg a day. 3. Subcutaneous aspirin. 4. Lisinopril 10 mg a day. 5. Mevacor 10 mg a day. 6. Lopressor 12.5 mg b.i.d. 7. Zofran p.r.n. 8. She has had normal saline at 100 cc an hour. 9. She received high-dose prednisone prior to her CT scan last night. ALLERGIES: Include SULFA, PENICILLINS, CLINDAMYCIN, SHELLFISH (per patient, these things lead to atrial fibrillation). REVIEW OF SYSTEMS: Patient perceives she does not eat and drink enough. She denies any recent fevers, chills, sweats, hematuria, dysuria, change in bowel or bladder habits. She denies any swelling in the legs with travel. She denies chest pain, pressure, heaviness, orthopnea, or PND. All other 14-point review of systems is unremarkable. PHYSICAL EXAM: On exam, the patient is a lean elderly woman seated at 45 degrees, in no acute distress. Current vitals: Blood pressure 145/76, pulse is 82 and regular, oxygen saturation on room air 94%, temperature 98.0. Psychologically, pleasant and cooperative. Neurologically, somewhat vague historian and evidence of perhaps some mild memory loss as she seems to confuse references of location of [place], [place] and [place], [place] and seems vague and changeable with specific details of her past history. Speech is articulate , comprehension is good and she follows commands well. Skin: Warm, dry without appreciable cyanosis or rashes. HEENT: Pupils are equal and round. Mucous membranes moist. Neck without appreciable increase in JVP. Palpable carotid pulses without audible bruits. Breath sounds were clear with good effort. No wheezes, rales, or rhonchi. Coronary: S1, S2 regular without murmurs, rubs, or extra systole. Abdomen: Flat, active bowel sounds, soft, nontender, no hepatosplenomegaly. Extremities: Fingers showed arthritic changes consistent with degenerative arthritis. Radial pulses are strong. Lower extremities were free of edema and warm. DIAGNOSTIC STUDIES/LAB DATA: A 12-lead ECG on arrival this admission shows normal sinus rhythm, 64 beats per minute, QRS axis +30, normal AV and IV conduction times with subtle ST changes laterally. surveillance system monitor strip showed sinus tachycardia this morning with additional SVT (with beta-david held) at rates as high as 140 beats per minute. Her event monitor done in [place], [place] part 2 showed normal sinus rhythm with occasional PACs and PVCs. No bradycardic events were noted but she did have one 5-beat run of SVT documented. No sustained tachybrady arrhythmias noted (6-beat run occurred at 1:17 a.m.). Chest x-rays show hyperinflation with no acute disease. Brain CT from 01/07/17 showed no evidence of hemorrhage or mass. Her echocardiogram from 01/12/17 showed hyperdynamic ventricle with an ejection fraction of over 65%. No evidence of left ventricular outflow tract obstruction , abnormal diastolic filling, normal with a hyperdynamic right ventricle. Bowel function overall good with trace mitral insufficiency, trace mild tricuspid insufficiency. CT of the chest and thorax from 01/12/17 was negative for pulmonary embolism. Labs: White count 5.2, hemoglobin 13.9, platelets 197, increased monos. D- dimer on 01/07/17 was less than 200, on 01/11/17 of 231. Sodium 133, potassium 3.7, chloride 102, bicarb 24, BUN 19, creatinine 0.7, glucose 154. Troponin 0.00, 0.00, 0.00. BNP of 24. On 01/07/17, the patient's lactic acid was mildly elevated at 3. TSH from 01/11 of 4.32. Urinalysis from 01/08/17, 2+ leukocyte esterase, trace white cells , nitrite negative. From 01/11/17, urine specific gravity 1.005, 1+ leukocyte esterase. Urine culture from 01/08/17 grew E. coli 10,000 to 25,000 CFU/mL sensitive to all antibiotics as well as 10,000 to 25,000 normal anju. Toxicologies on the was negative including alcohol. Monitor as above, sinus rhythm with sinus tachycardia this morning. IMPRESSION AND PLAN: In summary, Shana Guillory is an 81-year-old woman who traveled to the [facility] last week from [place], [place] and has had two syncopal episodes, both while seated and witnessed of uncertain etiology. Differential would include tachybrady arrhythmias with her history of atrial fibrillation. It is possible that she is having vagal episodes, although the trigger would be uncertain, but if she in fact is relatively dehydrated, that is a possibility. With her history of mildly elevated glucose and admission that she is not always eating enough, it is possible that hypoglycemia is involved, although in both instances, her loss of consciousness was 2 minutes and she came around, so the history is not back consistent with hypoglycemia. It is possible that the patient has a low-grade urinary tract infection, which might trigger and make her more prone to loss of consciousness. Ischemia is also a possibility, she does not have evidence of left ventricular hypertrophy by EKG criteria or on her echo, but her EKG showed some ST depression laterally, which could be hypertension and repolarization abnormalities, but may actually represent ischemia. After extensive discussions with the patient in the presence of her daughter-in - law, who is a nurse, we gave her options of another external event monitor where she could wear for several weeks to follow up with her regular physician team in [place], [place] and then if she had another syncopal episode, we would be able to determine if that was associated tachybrady arrhythmias. We also talked about an implantable event monitor and I talked to her about setting a schedule for eating and drinking to minimize the chance of volume depletion or hypoglycemia. The patient stated she did not want to wear another external device, especially if it was not going to be provide information and is interested in the implantable event monitor, although she has some anxiety over effects of anesthesia in the past. I am going to recommend that we walk her in the morning to see what her blood pressure and her rate do and we will tentatively schedule her for an implantable event monitor. It is possible the patient has hormonal abnormalities such as adrenal insufficiency but we will not be able to evaluate this during this admission due to her high dose steroids obtained for her CT scan. Apparently, for allergies to scallops and squid, it should be noted there has been no documentation of allergy to x-ray contrast dye. Additional recommendations will be made pending her response to the above studies. I agree with the above studies and I agree with resuming the low-dose metoprolol as was done. [id number]/[facility] #: [id number] MTDD
[2017-01-13] MEDS: Metoprolol Tartrate TAB* 25 MG PO SCH ×2 (09:13→21:01)
[2017-01-13] MEDS: Lisinopril TAB* 10 MG PO SCH (09:13)
[2017-01-13] MEDS: Aspirin EC Low Dose* 81 MG TAB.EC PO SCH (09:13)
--- NOTE | 2017-01-13 15:03 | PN ---
Subjective Date of Service: 01/13/17 Interval History: Pt feels well. Had a treadmill stress test which showed flattening of ST segment and Dr. Chambers recommended nuclear stress test in [place]. Telemetry shows sinus rona with intermittent SVT lasting several seconds (pt is asymptomatic) Objective Active Medications: Acetaminophen (Tylenol Tab*) 650 mg PO Q4H PRN PRN Reason: FEVER/PAIN Aspirin (Aspirin Ec Low Dose*) 81 mg PO DAILY [facility] Last Admin: 01/13/17 09:13 Dose: 81 mg Sodium Chloride (Ns 0.9% 1000 Ml*) 1,000 mls @ 100 mls/hr IV PER RATE [facility] Last Admin: 01/13/17 01:24 Dose: 100 mls/hr Lisinopril (Prinivil Tab*) 10 mg PO DAILY [facility] Last Admin: 01/13/17 09:13 Dose: 10 mg Lovastatin (Mevacor (Nf)) 10 mg PO BEDTIME [facility] PRN Reason: Protocol Last Admin: 01/12/17 21:01 Dose: 10 mg Metoprolol Tartrate (Lopressor Tab*) 12.5 mg PO BID [facility] Last Admin: 01/13/17 09:13 Dose: 12.5 mg Ondansetron HCl (Zofran Inj*) 4 mg IV Q6H PRN PRN Reason: NAUSEA Vital Signs 01/12/17 01/12/17 01/12/17 15:40 19:49 21:10 Temperature 98.0 F 98.2 F Pulse Rate 87 84 Respiratory 14 16 16 Rate Blood Pressure 145/76 156/68 (mmHg) O2 Sat by Pulse 94 96 Oximetry 01/13/17 01/13/17 01/13/17 00:06 03:26 07:42 Temperature 98.2 F 98.1 F 98.0 F Pulse Rate 70 65 60 Respiratory 16 16 12 Rate Blood Pressure 131/76 145/66 132/67 (mmHg) O2 Sat by Pulse 96 95 97 Oximetry 01/13/17 08:00 Temperature Pulse Rate Respiratory 16 Rate Blood Pressure (mmHg) O2 Sat by Pulse Oximetry Oxygen Devices in Use Now: None Appearance: 81 yo F in NAD, aAOx3 Eyes: No Scleral Icterus, PERRLA Ears/Nose/Mouth/Throat: NL Teeth, Lips, Gums, Mucous Membranes Moist Neck: NL Appearance and Movements; NL JVP, Trachea Midline Respiratory: Symmetrical Chest Expansion and Respiratory Effort, Clear to Auscultation Cardiovascular: NL Sounds; No Murmurs; No JVD, RRR Abdominal: NL Sounds; No Tenderness; No Distention, No Hepatosplenomegaly Lymphatic: No Cervical Adenopathy Extremities: No Edema, No Clubbing, Cyanosis Skin: No Rash or Ulcers, No Nodules or Sclerosis Neurological: Alert and Oriented x 3, NL Muscle Strength and Tone Result Diagrams: 01/12/17 05:11 01/12/17 05:11 Assess/Plan/Problems-Billing Assessment: 81 yo f with h/o cardiac arrest post op in , HTN, post po a. fib in the past, who presented with a second episode of syncope and LOC this week(previously see on 01/08/17). - Patient Problems (1) Syncope Comment: first episode in 01/08/17 -OBV at [facility] second episode on 01/12/17 Echo shows hyperdynamic LV with EF 65%. CTA neg for PE Spoke with pt about a loop recorder placement. Pt agreed. consulted Dr. Issa , unfortunately it can not be performed within the same hospital stay. treadmill stress test on 01/13/17 nonconclusive. Treadmill myoview scheduled for tomorrow (2) Atrial fibrillation Comment: noted post op several years ago. Never anticoagulated. lopressor was stopped at admission due to mild bradycardia Then pt continued to be tachycardic (in sinus tachy). Lopressor restarted on . spoke with Dr. Chambers who stated that the episodes on telem appear to be SVT and pt needs to have further monitoring prior to deciding about anticoagulation. Pt plans to see her drop forger back in [place] for consideration of loop recorder (3) HTN (hypertension) Comment: cont lisinopril and lopressor (4) DVT prophylaxis Comment: heparin sc Status and Disposition: inpatient
[2017-01-13] MEDS: CMCS: Lovastatin (NF) 10 MG TAB PO SCH (21:01)
[2017-01-14] MEDS: NS 0.9% 1000 ML* 1,000 ML IV SCH (05:24)
--- NOTE | 2017-01-14 10:53 | RAD ---
HISTORY: Syncope, hypertension, hyperlipidemia COMPARISONS: None TECHNIQUE: A 1 day stress/rest myocardial perfusion study was performed, with pharmacologic stress. The stress portion was monitored by Dr. De La Cruz. Gated SPECT imaging was performed, with CT-based attenuation correction DOSE: Stress: Technetium 99m tetrofosmin, 25.3 millicuries, injected at 9:30 AM on January 14, 2017 Rest: Technetium 99m tetrofosmin, 10.3 millicuries, injected at 7:40 AM on January 14, 2017 Pharmacologic agent: Lexiscan FINDINGS: CARDIAC MONITORING: No new ST changes with ischemia EF: 79 % TID: 1.04 MOTION: Normal motion, with normal wall thickening. PERFUSION: There are no fixed or reversible perfusion defects. OTHER: None IMPRESSION: NO FIXED OR REVERSIBLE PERFUSION DEFECTS ASSESSMENT: LOW RISK. Based on imaging criteria from ACC/AHA 2002. Guideline Update for the Management of Patient's with Chronic Stable Angina, table 23. Noninvasive Risk Stratification.
[2017-01-14] MEDS: Metoprolol Tartrate TAB* 25 MG PO SCH (10:55)
[2017-01-14] MEDS: Aspirin EC Low Dose* 81 MG TAB.EC PO SCH (10:55)
[2017-01-14] MEDS: Lisinopril TAB* 10 MG PO SCH (10:55)
[2017-01-14 11:32] VITALS: BP 168/90
[2017-01-14] MEDS ORDERED: Regadenoson* 0.4 MG/5 ML SYRINGE ONE (11:34)
[2017-01-14] MEDS ORDERED: Aminophylline IV* 25 MG/ML 10 ML VIAL ONE (11:35)
--- NOTE | 2017-01-15 02:31 | DS ---
CC: Dr. Vania Scott, [facility]; Dr. Theo Ivan, [facility] [place]; Dr. Jose Alfredo Rutledge, [facility] , in ; Dr. Issa; Dr. De La Cruz * DISCHARGE SUMMARY: DATE OF ADMISSION: 01/11/17 DATE OF DISCHARGE: 01/14/17 PRIMARY CARE PROVIDER: Dr. Vania Scott from . DISCHARGE DIAGNOSIS: Syncope. Please note that the patient also was placed on observation for syncope on 01/08/17 at our facility. SECONDARY DIAGNOSES: 1. Sinus bradycardia. 2. Short bursts of supraventricular tachycardia during the hospital stay, asymptomatic. 3. History of hypertension. 4. Hyperlipidemia. 5. History of atrial fibrillation that occurred once after the patient had knee surgery. 6. History of "cardiac arrest" from previous back surgery several years ago when the patient was noted to have "prolonged sinus node recovery time and sick sinus syndrome." 7. History of respiratory arrest in January of 2015 after lumbar back surgery at [facility] in [place] that was thought to be due to anesthesia and narcotics. MEDICATIONS ON DISCHARGE: Unchanged from admission and include: 1. Multivitamin 1 tablet daily. 2. Lopressor 12.5 mg b.i.d. 3. Mevacor 10 mg at bedtime. 4. Lisinopril 10 mg daily. 5. Vitamin B12 1000 mcg daily. 6. Calcium with vitamin D 1 tablet daily. 7. Aspirin 81 mg daily. CONSULTATIONS DURING THE HOSPITAL STAY: Included Dr. Issa and Dr. De La Cruz from Cardiology. LABORATORY DATA AND STUDIES PERFORMED DURING THE HOSPITAL STAY: Included: On 01/12/17, white blood cell count 5.2, hemoglobin of 13.9, hematocrit of 42, and platelets of 197. D-dimer was 231. Subsequent CT angiogram of the chest, impression: "No pulmonary arterial filling defects to suggest pulmonary embolism." On 01/12/17, sodium was 133, potassium 3.7, chloride 102, carbon dioxide 24, BUN 19, creatinine 0.7, random glucose level was 154. The patient's troponins throughout her hospital stay was 0. Brain natriuretic peptide on 01/11/17 was 44. TSH was noted to be 4.3 at admission. Urinalysis was grossly unremarkable apart from trace of esterase at admission. The patient had 2 cardiac stress tests during the hospital stay. The patient's initial cardiac stress test was a treadmill stress test without imaging obtained on 01/13/17, which showed, impression: "Baseline EKG with normal sinus rhythm. Below average workload, but achieved more than 85% of MPHR. No chest pain. Rare isolated PVCs and 1 couplet. No V-tach. There is 1-mm horizontal ST abnormality in leads II, III, and aVF at PHR and returned to baseline in first minute of recovery without chest pain. Hypertensive response. " The second stress test obtained on the day of discharge of 01/14/17 showed the treadmill part, impression: "Baseline EKG with normal sinus rhythm. Lexiscan and Myoview nuclear stress test without chest pain. No ventricular arrhythmias. No new ST changes for ischemia." The patient's nuclear medicine portion of the stress test showed "normal wall motion and normal wall thickness, EF of 79%, and no fixed or reversible perfusion defects." HOSPITALIZATION COURSE: Shana Guillory is an 81-year-old female with history of problems with surgery in the past, one was noted to be sinus node dysfunction that was thought due to oversedation. After her knee surgery in the past, she had an episode of atrial fibrillation that apparently never recurred. She also had more of a respiratory arrest nature event post back surgery in January of 2015, that was thought to be due to narcotics and anesthesia. She was seen by Dr. Ivan from Neurology in [place], who asked for a 30-day monitoring to be performed that and was done in October of 2016. The report shows sinus bradycardia, otherwise normal sinus rhythm with PACs and PVCs. That was report of the 30-day monitoring. The patient is visiting the [facility] from [place] until 01/21/17. On 01/08/17, she was placed on overnight observation for a syncopal episode, it was thought due to hypovolemia. She went home, but subsequently developed another syncopal episode on 01/11/15. During both of those episodes, she stated that she was sitting down and she felt flushed and hot. She also stated that during both of those episodes it was hot outside and there was no air conditioning in the place where she was at. During current hospital stay, the patient was noted to have sinus bradycardia and initially her metoprolol was stopped. After her metoprolol was stopped, the patient's heart rate koki to 100 to 110, at some point, it was in 120s, in what appeared to be possibility of atrial fibrillation, but Cardiology consulted and cleared it as SVT. That lasted a minute or two. Subsequently on 01/13/17, she had 1 episode of SVT, it lasted seconds and which the patient was asymptomatic during that event. Due to rebound tachycardia after the beta david discontinuation, the patient' s beta-david was restarted on 01/12/17. Due to the episodes of SVT and sinus bradycardia, Cardiology was consulted. Dr. Issa saw the patient in consultation, initially recommended loop recorder implantable device. Unfortunately, we were unable to place it during the patient's hospital stay due to billing problems, as we heard from our billing department her insurance will not pay for the patient to have that procedure done during the inpatient stay. Subsequently, Dr. Issa recommended treadmill stress test, which was performed and showed no specific changes in inferior leads. Due to that, Dr. De La Cruz once he took over the patient's care from Cardiology standpoint, he recommended treadmill Myoview stress test, it was performed on the day of discharge and it was unremarkable. Throughout the 3 days of the patient's hospital stay, the patient's SVT resolved in the past 24 hours. The patient continued to be in sinus bradycardia and she had one episode of 2-second sinus pause. She had no symptomatic arrhythmias noted. Her systolic pressures at discharge was slightly elevated, but her blood pressure medications were held prior to her stress test today. She is going to be discharged home with recommendation to follow up with her primary care provider and her trolley operator as outpatient. PHYSICAL EXAMINATION: At the time of discharge, blood pressure of 168/90, heart rate of 73 and regular, respiratory rate 18, oxygen saturation 99% on room air, temperature 98.8. General: The patient is a very pleasant 81-year- old female, who is in no acute distress. Alert, awake, and oriented x3. HEENT : Head: Atraumatic, normocephalic. Eyes: Pupils are equal, reactive to light and accommodation. Oropharynx clear. Mucosa moist. Neck: Supple. No JVD, no bruits bilaterally. Cardiovascular: Regular rate and rhythm. No murmur. Respiratory: Clear to auscultation bilaterally. Abdomen: Soft, nontender. Bowel sounds present in all 4 quadrants. Extremities: There is no edema. Pulses 2+ bilaterally. No clubbing or cyanosis. Neuro Evaluation: Speech is clear. Cranial nerves II through XII grossly intact. Motor strength is 5/5 bilaterally. Please note that this is a short summary of the patient's hospitalization. Please refer to further medical record for details. TIME SPENT: Approximately 45 minutes was spent on the patient's discharge. [id number]/[facility] #: [id number] SARA
== END 2017-01-14 13:24 | disposition home or self-care (01) | DRG 312 ==
LOC: ED 12:08 → MEDTELE 14:52 → OBSVTOIN 01-12 14:37
PROVIDERS: ADMIT Hospitalist; ATTEND Internal Medicine
DX: R55 Syncope and collapse (principal); Z86.74 Personal history of sudden cardiac arrest; R00.1 Bradycardia, unspecified; I47.1 Supraventricular tachycardia; I48.91 Unspecified atrial fibrillation; I10 Essential (primary) hypertension; M19.90 Unspecified osteoarthritis, unspecified site; E78.5 Hyperlipidemia, unspecified; I08.1 Rheumatic disorders of both mitral and tricuspid valves; Z96.653 Presence of artificial knee joint, bilateral; Z98.1 Arthrodesis status; Z90.710 Acquired absence of both cervix and uterus; Z88.1 Allergy status to other antibiotic agents; Z91.013 Allergy to seafood; Z79.82 Long term (current) use of aspirin; Z88.0 Allergy status to penicillin; Z88.2 Allergy status to sulfonamides; Z91.018 Allergy to other foods; Z72.89 Other problems related to lifestyle
CPT/HCPCS: 36415; 71020; 71275; 78452; 80048; 80053; 80307; 80320; 81003; 81015; 82140; 83605; 83735; 83880; 84443; 84484; 85025; 85379; 87086; 93005; 93017; 93306; A9270-GY; A9502; G0378; G0480; J0280; J1644; J2785; J7512; Q9967